=== PATIENT | male | born 1960 | race Caucasian/White ===

== ENCOUNTER → 2018-04-21 12:54 | Outpatient (CLI) | payer OTHER, MEDICAID, SELFPAY | PROVIDERS: Family Provider Family Medicine; PCP Family Medicine; Visit Provider Family Medicine | DX: M25.532 Pain in left wrist (principal) | CPT/HCPCS: 95886; 95909 ==

== ENCOUNTER → 2018-05-06 10:02 | Outpatient (REF) | payer OTHER, MEDICAID, SELFPAY ==
[2018-05-06 10:23] LABS: Influenza A and B by PCR Rapid Negative (Negative)
== END ==
LOC: LAB 10:02
PROVIDERS: Family Provider Family Medicine; PCP Family Medicine; Visit Provider Family Medicine
DX: J11.1 Influenza due to unidentified influenza virus with other respiratory manifestations (principal)
CPT/HCPCS: 87400